=== PATIENT | male | born 1965 | race Caucasian/White ===

== ENCOUNTER → 2018-06-07 14:58 | Emergency (ER) | payer SELFPAY ==
[~2018-06-07 14:58] MED LIST: PPD test dose* 5 TU/0.1 ML TEST (*USE PPD ORDER SET*) ONE
== END | disposition home or self-care (01) ==
LOC: OHCORT 14:58
DX: R76.11 Nonspecific reaction to tuberculin skin test without active tuberculosis (principal)

== ENCOUNTER 2018-06-23 10:21 | Emergency (ER) | payer SELFPAY ==
[2018-06-23 10:44] VITALS: BP 126/77
[2018-06-23] MEDS ORDERED: Tetracaine 0.5% OPTH.SOL 4 ML* 1 DROP BTL RIGHT EYE ONE (10:48)
[2018-06-23] MEDS ORDERED: Tetracaine 0.5% OPTH.SOL 4 ML* 1 DROP BTL ONE (10:49)
[2018-06-23] MEDS ORDERED: BSS OPTH.SOL* BTL ONE (10:49)
[2018-06-23] MEDS ORDERED: Fluorescein Sod TOPICAL 0.6* 0.6 MG TEST OPHTHALMIC ONE ×2 (10:49→10:51)
--- NOTE | 2018-06-23 11:04 | UC ---
Eye Complaint HPI - HPI Summary HPI Summary: right eye pain x 1 day was working at home yesterday , saw dusk went into the right eye , pain and foreign body sensation , right eye tearing, no change in vision - History of Current Complaint Chief Complaint: UCEye Stated Complaint: RIGHT EYE COMPLAINT Time Seen by Provider: 06/23/18 10:35 Hx Obtained From: Patient Onset/Duration: Sudden Onset, Lasting Days - 1, Still Present Timing: Constant Severity Initially: Severe Severity Currently: Severe Pain Intensity: 2 Location of Injury: Sclera - right eye Aggravating Factor(s): Blinking Alleviating Factor(s): Nothing Associated Signs And Symptoms: Positive: Drainage (Clear). Negative: Photophobia, Drainage (Purulent), Vision Impairment Bilateral, Vision Impairment Right, Vision Impairment Left, Fever, Swelling - Allergies/Home Medications Allergies/Adverse Reactions: Allergies Allergy/AdvReac Type Severity Reaction Status Date / Time amoxicillin [From Augmentin] Allergy Intermediate Itching Verified 06/23/18 10: 37 clavulanic acid Allergy Intermediate Itching Verified 06/23/18 10:37 [From Augmentin] PMH/Surg Hx/FS Hx/Imm Hx Respiratory History: COPD GI/ History: Gastroesophageal Reflux - Surgical History Surgical History: None - Family History Known Family History: Positive: Hypertension - Social History Alcohol Use: None Alcohol Amount: 3 times a week Substance Use Type: None Smoking Status (MU): Former Smoker Type: Cigarettes, Smokeless Tobacco Amount Used/How Often: 2 ppd Length of Time of Smoking/Using Tobacco: 25-30 yrs When Did the Patient Quit Smoking/Using Tobacco: 2007 Review of Systems Constitutional: Negative Skin: Negative Eyes: Drainage - right eye, Other - right eye pain ENT: Negative Respiratory: Negative Cardiovascular: Negative Gastrointestinal: Negative Genitourinary: Negative Is Patient Immunocompromised?: No All Other Systems Reviewed And Are Negative: Yes Physical Exam Triage Information Reviewed: Yes Appearance: Well-Appearing, No Pain Distress, Well-Nourished Vital Signs: Initial Vital Signs Temp 98 F 06/23/18 10:38 Pulse 82 06/23/18 10:38 Resp 20 06/23/18 10:38 BP 126/77 06/23/18 10:38 Pulse Ox 98 06/23/18 10:38 Vital Signs Reviewed: Yes Eye Exam: Normal Eyes: Positive: Conjunctiva Inflamed - right eye, Discharge - clear discharge right eye, Other: - right eye corneal abrasion ENT Exam: Normal ENT: Positive: Normal ENT inspection, Hearing grossly normal, Pharynx normal Neck: Positive: Supple, Nontender, No Lymphadenopathy Respiratory: Positive: Chest non-tender, Lungs clear, Normal breath sounds Cardiovascular: Positive: RRR, No Murmur, Pulses Normal Skin Exam: Normal Eye Complaint Course/Dx - Differential Dx/Diagnosis Provider Diagnoses: corneal abrasion right eye Discharge - Sign-Out/Discharge Documenting (check all that apply): Patient Departure All imaging exams completed and their final reports reviewed: No Studies - Discharge Plan Condition: Stable Disposition: HOME Prescriptions: Erythromycin OPTH OINT* [Erythromycin 0.5% OPTH OINT*] 1 applic RIGHT EYE QID # 1 tube Patient Education Materials: Corneal Abrasion (ED) Forms: *Work Release Referrals: Hasmukh Isaac MD [Primary Care Provider] - 2 Days - Billing Disposition and Condition Condition: STABLE Disposition: Home
== END 2018-06-23 11:04 | disposition home or self-care (01) ==
LOC: UCCORT 10:21
DX: S05.01XA Injury of conjunctiva and corneal abrasion without foreign body, right eye, initial encounter (principal); W22.8XXA Striking against or struck by other objects, initial encounter; Y92.009 Unspecified place in unspecified non-institutional (private) residence as the place of occurrence of the external cause; Z87.891 Personal history of nicotine dependence; Z88.3 Allergy status to other anti-infective agents
CPT/HCPCS: 99212; A9270-GY; G0463